=== PATIENT | female | born 1995 | race Two or more races ===

== ENCOUNTER 2019-03-03 09:15 | Emergency (ER) | payer MEDICAID ==
[~2019-03-03] VITALS: Ht 152.4 cm; Wt 68.0 kg
[2019-03-03 10:00] VITALS: BP 108/62
== END 2019-03-03 16:48 | disposition left against medical advice (07) ==
LOC: ER 10:11
DX: R51 Headache (principal); Z53.21 Procedure and treatment not carried out due to patient leaving prior to being seen by health care provider

== ENCOUNTER 2020-06-04 14:11 | Emergency (ER) | payer MEDICAID ==
[~2020-06-04] VITALS: Ht 149.9 cm; Wt 59.0 kg
[2020-06-04 15:03] LABS: BASOPHILS % 0.2 % (0.0-2.0); EOSINOPHILS % 0.2 % (0.0-5.0); LYMPHOCYTES % 16.7 % (20.0-50.0); MEAN CORPUSCULAR VOLUME 97.2 fL (81.0-99.0); MEAN PLATELET VOLUME 7.8 fl (7.4-10.4); NEUTROPHILS % 78.9 % (40.0-76.0); PLATELET 273 x1000/uL (130-400); RED BLOOD CELL COUNT 3.81 mill/uL (4.2-5.4); RED CELL DISTRIBUTION WIDTH 12.7 % (11.6-14.6)
[2020-06-04 15:10] LABS: CHLORIDE 105 mEq/L (98-107)
[2020-06-04 15:33] LABS: B-HCG QUANTITATIVE 46960 mIU/mL (<3)
[2020-06-04 17:11] LABS: CLARITY URINE CLOUDY (CLEAR); COLOR URINE YELLOW (YELLOW); KETONES URINE TRACE (NEGATIVE); LEUKOCYTE ESTERASE URINE 1+ (NEGATIVE); NITRITE URINE NEGATIVE (NEGATIVE); OCCULT BLOOD URINE NEGATIVE (NEGATIVE); PROTEIN URINE NEGATIVE (NEGATIVE); SPECIFIC GRAVITY URINE 1.022 (1.005-1.030)
[2020-06-04 17:30] VITALS: BP 101/52
[2020-06-04] MEDS ORDERED: NITR-87 MT (18:45)
== END 2020-06-04 19:21 | disposition home or self-care (01) ==
LOC: ER 14:11
DX: O23.41 Unspecified infection of urinary tract in pregnancy, first trimester (principal); O26.891 Other specified pregnancy related conditions, first trimester; R03.0 Elevated blood-pressure reading, without diagnosis of hypertension; Z3A.12 12 weeks gestation of pregnancy
CPT/HCPCS: 36415; 76801; 80053; 81003; 84702; 85025; 86850; 86900; 93005; 99285

== ENCOUNTER 2020-07-10 20:49 | Emergency (ER) | payer MEDICAID ==
[~2020-07-10] VITALS: Ht 157.5 cm; Wt 62.0 kg
[~2020-07-10 20:49] MED LIST: NITR-87 MT
[2020-07-10 22:02] LABS: CLARITY URINE CLEAR (CLEAR); COLOR URINE YELLOW (YELLOW); KETONES URINE NEGATIVE (NEGATIVE); LEUKOCYTE ESTERASE URINE NEGATIVE (NEGATIVE); NITRITE URINE NEGATIVE (NEGATIVE); OCCULT BLOOD URINE NEGATIVE (NEGATIVE); PROTEIN URINE NEGATIVE (NEGATIVE); SPECIFIC GRAVITY URINE 1.003 (1.005-1.030); UROBILINOGEN URINE 0.2 E.U./dL (0.2-1.0)
[2020-07-10 22:55] LABS: BASOPHILS % 0.2 % (0.0-2.0); EOSINOPHILS % 0.1 % (0.0-5.0); HEMATOCRIT. 32.1 % (36.0-48.0); HEMOGLOBIN. 11.7 g/dL (12.0-16.0); LYMPHOCYTES % 13.6 % (20.0-50.0); MEAN CORPUSCULAR VOLUME 99.1 fL (81.0-99.0); MONOCYTES % 4.2 % (2.0-8.0); NEUTROPHILS % 81.9 % (40.0-76.0); PLATELET 256 x1000/uL (130-400); RED BLOOD CELL COUNT 3.24 mill/uL (4.2-5.4); RED CELL DISTRIBUTION WIDTH 13.5 % (11.6-14.6)
[2020-07-10 22:59] LABS: CHLORIDE 108 mEq/L (98-107)
[2020-07-10 23:23] LABS: B-HCG QUANTITATIVE 6255 mIU/mL (<3)
[2020-07-11 02:15] VITALS: BP 110/62
[2020-07-12 10:09] LABS: HIV SCREEN 4G Non Reactive (Non Reactive)
[2020-07-14 08:08] LABS: NEISSERIA GONORRHOEAE NAA Negative (Negative)
== END 2020-07-11 02:36 | disposition home or self-care (01) ==
LOC: ER 20:49
DX: O26.892 Other specified pregnancy related conditions, second trimester (principal); R10.30 Lower abdominal pain, unspecified; Z20.2 Contact with and (suspected) exposure to infections with a predominantly sexual mode of transmission; R03.0 Elevated blood-pressure reading, without diagnosis of hypertension; Z3A.17 17 weeks gestation of pregnancy
CPT/HCPCS: 36415; 76700; 76805; 80053; 81003; 81025; 84702; 85025; 86592; 86803; 86850; 86900; 87210; 87389; 87491; 87591; 99285

== ENCOUNTER 2020-10-03 11:59 | Observation (INO) | payer MEDICAID ==
[~2020-10-03] VITALS: Ht 149.9 cm; Wt 81.6 kg
[2020-10-03 13:29] LABS: CLARITY URINE CLOUDY (CLEAR); COLOR URINE YELLOW (YELLOW); KETONES URINE TRACE (NEGATIVE); LEUKOCYTE ESTERASE URINE 3+ (NEGATIVE); NITRITE URINE NEGATIVE (NEGATIVE); OCCULT BLOOD URINE NEGATIVE (NEGATIVE); PH URINE 6.5 (4.5-8.0); PROTEIN URINE TRACE (NEGATIVE); SPECIFIC GRAVITY URINE 1.019 (1.005-1.030)
[2020-10-03] MEDS ORDERED: LACTATED RINGERS 1,000 ML IV SCH (14:30)
[2020-10-03] MEDS ORDERED: PNV1TABL76 PO (15:06)
== END 2020-10-03 15:30 | disposition home or self-care (01) ==
LOC: 8 EST LDRP 11:59
PROVIDERS: ADMIT Obstetrics & Gynecology; ATTEND Obstetrics & Gynecology
DX: O26.893 Other specified pregnancy related conditions, third trimester (principal); R10.30 Lower abdominal pain, unspecified; Z3A.29 29 weeks gestation of pregnancy
CPT/HCPCS: 59025; 81003; 87077; 87086; 96360; G0378; 96361; 99281

== ENCOUNTER 2023-04-25 12:05 | Emergency (ER) | payer MEDICAID ==
[~2023-04-25] VITALS: Ht 144.8 cm; Wt 76.0 kg
[~2023-04-25 12:05] MED LIST changes: +PNV1TABL76 PO
[2023-04-25 12:11] VITALS: O2SAT 100
[2023-04-25] MEDS ORDERED: TETRACAINE 0.5% OPHTH DROPS 4ML BOTHEYE ONE (12:45)
[2023-04-25] MEDS ORDERED: BALANCED SALT IRRIG SOLN 15ML IR ONE (12:45)
[2023-04-25] MEDS ORDERED: FLUORESCEIN SODIUM 1MG/STRIP BOTHEYE ONE (12:45)
[2023-04-25] MEDS ORDERED: CIPR2.5D20 RIGHTEYE (16:05)
[2023-04-25] MEDS ORDERED: NAPR-681 PO (16:05)
[2023-04-25 16:19] VITALS: BP 119/75; PULSE 67; RESP 18; TEMP 98.6
== END 2023-04-25 16:21 | disposition home or self-care (01) ==
LOC: ER 12:05
DX: S00.11XA Contusion of right eyelid and periocular area, initial encounter (principal); H10.211 Acute toxic conjunctivitis, right eye; X58.XXXA Exposure to other specified factors, initial encounter; Y93.89 Activity, other specified; Y92.89 Other specified places as the place of occurrence of the external cause; Y99.8 Other external cause status
CPT/HCPCS: 99283; Z7610 ×5